=== PATIENT | female | born 2000 | race Two or more races ===

== ENCOUNTER 2025-05-10 19:56 | Emergency (ER) | payer OTHER ==
[~2025-05-10] VITALS: Ht 165.1 cm; Wt 80.3 kg
[2025-05-10] MEDS ORDERED: TAMSULOSIN HCL 0.4 MG CAP PO ONE ×2 (22:11→22:15)
[2025-05-10] MEDS ORDERED: KETOROLAC TROMETHAMINE 60 MG VIAL IM ONE ×2 (22:12→22:15)
[2025-05-10] MEDS ORDERED: CEFTRIAXONE SODIUM 1,000 MG VIAL ONE (22:12)
[2025-05-10] MEDS ORDERED: LIDOCAINE HCL 1% 10ML VIAL ONE (22:12)
[2025-05-10] MEDS ORDERED: CEFTRIAXONE SODIUM 1,000 MG VIAL IM ONE (22:15)
[2025-05-10] MEDS ORDERED: BACTRIM DS TAB1 EACH PO (22:45)
[2025-05-10] MEDS ORDERED: NORFLEX100MG PO (22:45)
[2025-05-10] MEDS ORDERED: PEPCID AC20 MG PO (22:45)
[2025-05-10 23:05] LABS: BASO % 0.5 % (0.1-1.2); EOS # 0.12 (0.04-0.54); EOS % 1.4 % (0.7-7.0); LYMPH # 2.47 (1.18-3.74); LYMPH % 29.8 % (19.3-53.1); MEAN PLATELET VOLUME 10.10 fl (9.4-12.4); MONO # 0.46 (0.24-0.82); MONO % 5.5 % (4.7-12.5); NEUT # 5.19 (1.56-6.13); NEUT % 62.7 % (34.0-71.1); RED CELL DISTRIBUTION WIDTH 13.1 % (11.6-14.4)
[2025-05-10 23:07] LABS: URINE APPEARANCE Clear; URINE BILIRRUBIN Negative (NEGATIVE); URINE BLOOD NHT; URINE COLOR Dark Yellow; URINE GLUCOSE Negative (NEGATIVE); URINE KETONE Negative (NEGATIVE); URINE LEUKOCYTE Small; URINE NITRATE Positive; URINE PROTEIN Trace (NEGATIVE); URINE UROBILINOGEN 1.0 E.U./dl
[2025-05-10 23:11] LABS: URINE BACTERIA 149.9 uL (0.0-1933); URINE CAST 0.14 uL (0.0-1.40); URINE EPITHELIAL CELLS 8.4 uL (0.0-38.8); URINE RBC 13.4 uL (0.0-20.8); URINE WBC 110.1 uL (0.0-23.2)
== END 2025-05-10 23:02 | disposition home or self-care (01) ==
LOC: ER 19:56
PROVIDERS: General Practice
DX: N39.0 Urinary tract infection, site not specified (principal); M54.89 Other dorsalgia